=== PATIENT | male | born 1985 | race Caucasian/White ===

== ENCOUNTER 2024-02-10 09:23 | Outpatient (CLI) | payer OTHER | END 2024-02-10 09:24 | disposition home or self-care (01) | LOC: CAM 09:23 | PROVIDERS: ATTEND Nurse Practitioner Family | DX: M54.9 Dorsalgia, unspecified (principal); G89.29 Other chronic pain | CPT/HCPCS: 97810; 97811 ==

== ENCOUNTER 2024-02-11 08:08 | Outpatient (CLI) | payer OTHER | END 2024-02-11 08:09 | disposition home or self-care (01) | LOC: CAM 08:08 | PROVIDERS: ATTEND Nurse Practitioner Family | DX: M54.9 Dorsalgia, unspecified (principal); G89.29 Other chronic pain | CPT/HCPCS: 97810; 97811 ==

== ENCOUNTER 2024-02-16 10:34 | Outpatient (CLI) | payer OTHER | END 2024-02-16 10:35 | disposition home or self-care (01) | LOC: CAM 10:34 | PROVIDERS: ATTEND Nurse Practitioner Family | DX: M54.9 Dorsalgia, unspecified (principal) | CPT/HCPCS: 97810; 97811 ==

== ENCOUNTER 2024-02-18 08:03 | Outpatient (CLI) | payer OTHER | END 2024-02-18 08:04 | disposition home or self-care (01) | LOC: CAM 08:03 | PROVIDERS: ATTEND Nurse Practitioner Family | DX: M54.9 Dorsalgia, unspecified (principal); G89.29 Other chronic pain | CPT/HCPCS: 97810; 97811 ==

== ENCOUNTER 2024-02-23 09:41 | Outpatient (CLI) | payer OTHER | END 2024-02-23 09:42 | disposition home or self-care (01) | LOC: CAM 09:41 | PROVIDERS: ATTEND Nurse Practitioner Family | DX: M54.9 Dorsalgia, unspecified (principal); G89.29 Other chronic pain | CPT/HCPCS: 97810; 97811 ==

== ENCOUNTER 2024-02-25 08:11 | Outpatient (CLI) | payer OTHER | END 2024-02-25 08:12 | disposition home or self-care (01) | LOC: CAM 08:11 | PROVIDERS: ATTEND Nurse Practitioner Family | DX: M54.9 Dorsalgia, unspecified (principal); G89.29 Other chronic pain | CPT/HCPCS: 97813; 97814 ==

== ENCOUNTER 2024-03-01 09:35 | Outpatient (CLI) | payer OTHER | END 2024-03-01 09:36 | disposition home or self-care (01) | LOC: CAM 09:35 | PROVIDERS: ATTEND Nurse Practitioner Family | DX: M54.9 Dorsalgia, unspecified (principal); G89.29 Other chronic pain | CPT/HCPCS: 97810; 97811; 97813; 97814 ==

== ENCOUNTER 2024-03-03 10:57 | Outpatient (CLI) | payer OTHER | END 2024-03-03 10:58 | disposition home or self-care (01) | LOC: CAM 10:57 | PROVIDERS: ATTEND Nurse Practitioner Family | DX: M54.9 Dorsalgia, unspecified (principal); G89.29 Other chronic pain | CPT/HCPCS: 97813; 97814 ==

== ENCOUNTER 2024-03-22 13:02 | Outpatient (CLI) | payer OTHER | END 2024-03-22 13:03 | disposition home or self-care (01) | LOC: CAM 13:02 | PROVIDERS: ATTEND Nurse Practitioner Family | DX: M54.9 Dorsalgia, unspecified (principal); G89.29 Other chronic pain | CPT/HCPCS: 97810; 97811 ==

== ENCOUNTER 2024-03-29 12:56 | Outpatient (CLI) | payer OTHER | END 2024-03-29 12:57 | disposition home or self-care (01) | LOC: CAM 12:56 | PROVIDERS: ATTEND Nurse Practitioner Family | DX: M54.9 Dorsalgia, unspecified (principal) | CPT/HCPCS: 97810; 97811 ==

== ENCOUNTER 2024-03-31 13:00 | Outpatient (CLI) | payer OTHER | END 2024-03-31 13:01 | disposition home or self-care (01) | LOC: CAM 13:00 | PROVIDERS: ATTEND Nurse Practitioner Family | DX: M54.9 Dorsalgia, unspecified (principal) | CPT/HCPCS: 97810; 97811 ==

== ENCOUNTER 2024-04-05 08:29 | Outpatient (CLI) | payer OTHER | END 2024-04-05 08:30 | disposition home or self-care (01) | LOC: CAM 08:29 | PROVIDERS: ATTEND Nurse Practitioner Family | DX: M54.9 Dorsalgia, unspecified (principal); G89.29 Other chronic pain | CPT/HCPCS: 97810; 97811 ==